=== PATIENT | male | born 1990 | race Caucasian/White ===

== ENCOUNTER 2020-04-19 16:48 | Emergency (ER) | payer BC, OTHER ==
[~2020-04-19] VITALS: Ht 182.9 cm; Wt 121.0 kg
[~2020-04-19 16:48] MED LIST: CEPH-571 PO; CIPR2.5D14 RIGHTEYE; DIAZ10TA PO; ESOM40CA PO; HYDR-4383 PO
[2020-04-19 17:09] VITALS: BP 169/94
== END 2020-04-19 18:34 | disposition home or self-care (01) ==
LOC: ER 16:48
DX: M79.644 Pain in right finger(s) (principal); G89.29 Other chronic pain; M54.9 Dorsalgia, unspecified; Z98.890 Other specified postprocedural states; W18.39XA Other fall on same level, initial encounter; Y93.89 Activity, other specified; Y92.89 Other specified places as the place of occurrence of the external cause; Y99.8 Other external cause status
CPT/HCPCS: 73130; 99283